=== PATIENT | male | born 1960 | race Hispanic/Latino ===

== ENCOUNTER 2018-06-14 16:51 | Inpatient (IN) | payer OTHER ==
[2018-06-14 19:19] LABS: #Basophils 0.1 thou/uL (0.0-0.2); #Lymphocytes 0.5 thou/uL (1.20-3.40); #Monocytes 0.3 thou/uL (0.11-0.59); #Neutrophils 10.3 thou/uL (1.40-6.50); %Basophils 0.5 % (0.0-1.0); %Eosinophils 0.1 % (0.0-10.0); %Monocytes 2.9 % (0.0-10.0); %Neutrophils 92.5 % (42.0-75.0); Hemoglobin 12.5 g/dL (14.0-18.0); Mean Corpuscular HGB CONC 33.6 g/dL (32.0-36.0); Mean Corpuscular Hemoglobin 31.4 pg (27.0-31.0); Mean Corpuscular Volume 93.2 fL (78.0-98.0); Mean Platelet Volume 7.4 fL (7.4-10.4); Platelet Count 227 thou/uL (130-400); RBC Distribution Width 13.1 % (11.5-14.5); Red Blood Cell (RBC) Count 3.98 mill/uL (4.70-6.10); White Blood Cell (WBC) Count 11.2 thou/uL (4.8-10.8)
[2018-06-14 19:33] LABS: INR-International Normal Ratio 1.1; PTT 32.3 SEC (22.9-36.1); Prothrombin Time 14.5 SEC (12.0-14.7)
[2018-06-14 19:44] LABS: ALT (SGPT) 280 U/L (8-55); AST (SGOT) 108 U/L (5-34); Acetaminophen Less than 6.0 mcg/mL (10.0-30.0); Alcohol Less than 10 mg/dL (Less than 10); Alkaline Phosphatase 177 U/L (40-150); Anion Gap 12 mmol/L (10-20); BUN (Urea Nitrogen) 28 mg/dL (8.4-25.7); Bilirubin, Total 3.3 mg/dL (0.2-1.2); Calc. Creatinine Clearance 0 mL/min (70-130); Calcium 9.3 mg/dL (7.8-10.44); Carbon Dioxide 25 mmol/L (22-29); Chloride 99 mmol/L (98-107); Estimated GFR-MDRD 48; Globulin 3.7 g/dL (2.4-3.5); Glucose 295 mg/dL (70-105); Lipase 14 U/L (8-78); Potassium 4.4 mmol/L (3.5-5.1); Protein, Total 7.7 g/dL (6.0-8.3); Salicylate Less than 8.0 mg/dL (15.0-30.0); Sodium 132 mmol/L (136-145)
[2018-06-14] MEDS ORDERED: Ibuprofen 200 MG TAB ONE (19:57)
--- NOTE | 2018-06-14 20:14 | RAD ---
PORTABLE AP CHEST X-RAY: 06/14/2018 HISTORY: Hepatitis. Diabetes. Fever of 102. FINDINGS: The cardiac silhouette and pulmonary vasculature are within normal limits. The lungs are clear. The re is mild elevation of the right hemidiaphragm. Vascular calcification is seen in the thoracic aort a. The osseous structures appear intact. IMPRESSION: No acute cardiopulmonary process. POS: H
--- NOTE | 2018-06-14 21:00 | ULT ---
RIGHT UPPER QUADRANT ULTRASOUND: 06/14/2018 HISTORY: Right upper quadrant/epigastric pain with nausea and vomiting x3 days. FINDINGS: There is a large, mobile calculus seen within the gallbladder lumen, measuring 3.3 cm in maximal dime nsions, which demonstrates posterior shadowing, consistent with a large gallbladder calculus. There is gallbladder wall thickening, with the gallbladder wall measuring 0.5 cm in thickness. There is al so echogenic material in the gallbladder lumen, suggesting sludge. A few of the images question trac e pericholecystic fluid. Findings may be related to cholecystitis, in the correct clinical scenario. The common duct measures 0.4 cm in diameter, which is within normal limits. The liver demonstrates increased echogenicity, likely related to mild fatty infiltration. The pancreas is obscured by bowel gas. The visualized portions of the IVC and right kidney demonstra te a normal sonographic appearance. The right kidney measures 12.2 cm in length. IMPRESSION: 1. Large gallbladder calculus with sludge in the gallbladder lumen, with gallbladder wall thickening and suggestion of trace pericholecystic fluid. In the correct clinical scenario, findings are likel y related to cholecystitis. 2. The common duct is normal in caliber. 3. Fatty infiltration of the liver. POS: H
[2018-06-14] MEDS ORDERED: cefOXitin 2 GM, Syringe 1 ML in Sterile Water 10 ML SLOW IVP SCH (22:15)
[2018-06-14 23:20] LABS: Lactic Acid 1.7 mmol/L (0.5-2.2)
[2018-06-14] MEDS ORDERED: Acetaminophen 325 MG TAB PO PRN (23:27)
[2018-06-14] MEDS ORDERED: Ondansetron PF 4 MG/2 ML Vial IVP PRN (23:27)
[2018-06-14] MEDS ORDERED: Ondansetron ODT 4 MG TAB SL PRN (23:27)
[2018-06-15 00:42] VITALS: BMI 24.9
[2018-06-15] MEDS: Dextrose 5 % And 0.9 % NaCl 1,000 ML IV SCH ×2 (00:45→08:35)
[2018-06-15 04:14] LABS: #Lymphocytes 0.9 thou/uL (1.20-3.40); #Monocytes 0.5 thou/uL (0.11-0.59); #Neutrophils 7.8 thou/uL (1.40-6.50); %Basophils 0.3 % (0.0-1.0); %Eosinophils 0.1 % (0.0-10.0); %Lymphocytes 9.6 % (21.0-51.0); %Monocytes 5.3 % (0.0-10.0); %Neutrophils 84.9 % (42.0-75.0); Hemoglobin 10.3 g/dL (14.0-18.0); Mean Corpuscular HGB CONC 32.8 g/dL (32.0-36.0); Mean Corpuscular Hemoglobin 30.6 pg (27.0-31.0); Mean Corpuscular Volume 93.3 fL (78.0-98.0); Mean Platelet Volume 7.1 fL (7.4-10.4); Platelet Count 188 thou/uL (130-400); RBC Distribution Width 13.1 % (11.5-14.5); Red Blood Cell (RBC) Count 3.37 mill/uL (4.70-6.10); White Blood Cell (WBC) Count 9.2 thou/uL (4.8-10.8)
[2018-06-15 04:35] LABS: ALT (SGPT) 191 U/L (8-55); AST (SGOT) 57 U/L (5-34); Albumin 3.3 g/dL (3.5-5.0); Alkaline Phosphatase 140 U/L (40-150); Anion Gap 11 mmol/L (10-20); BUN (Urea Nitrogen) 34 mg/dL (8.4-25.7); Bilirubin, Total 2.5 mg/dL (0.2-1.2); Calc. Creatinine Clearance 45 mL/min (70-130); Calcium 8.5 mg/dL (7.8-10.44); Carbon Dioxide 26 mmol/L (22-29); Chloride 104 mmol/L (98-107); Estimated GFR-MDRD 42; Glucose 260 mg/dL (70-105); Potassium 3.6 mmol/L (3.5-5.1); Protein, Total 6.3 g/dL (6.0-8.3); Sodium 137 mmol/L (136-145)
[2018-06-15] MEDS ORDERED: MEROPENEM 1 GM/50 ML 1 GM in Premix Bag 1 BAG IVPB SCH (10:00)
[2018-06-15] MEDS ORDERED: HYDROcodone/Acetaminophen 7.5/325 mg Tablet PO PRN (10:45)
[2018-06-15] MEDS ORDERED: Sodium Chloride 0.9% 500 ML IV SCH (10:45)
[2018-06-15] MEDS ORDERED: Acetaminophen 1,000 MG in Premix Bag 1 BAG IVPB PRN (10:46)
[2018-06-15] MEDS ORDERED: Ondansetron PF 4 MG/2 ML Vial IVP PRN (10:46)
--- NOTE | 2018-06-15 11:20 | HP ---
REASON FOR CONSULTATION: Abdominal pain. HISTORY: Mr. Blevins is a 57-year-old man with epigastric and right upper quadrant abdominal pain since Thursday. He has had intermittent episodes of this in the past, but they have always gone away on t heir own and after he took some antacids. On this episode it was not going away and he was having mu ltiple episodes of nausea and vomiting, so he came into the emergency room last night. He was noted by the ER doctor to be jaundiced and he had also been running high fevers up to 102 Fahrenheit. He h ad a low grade fever in the ER of 99.8. He had taken multiple remedies at home including Pepto-Bismo l and other over the counter medications without any improvement and workup in the ER was most consis tent with cholecystitis. Since starting on antibiotics and pain medication he is feeling better. PAST MEDICAL HISTORY: Hypertension, hyperlipidemia and diabetes. PAST SURGICAL HISTORY: None. FAMILY HISTORY: Renal failure, diabetes, and heart attack in sibling, abdominal cancer of uncertain etiology in his mother and stroke in his father. SOCIAL HISTORY: The patient does not smoke, drink or use illicit drugs. MEDICATIONS: Metformin, lovastatin, amlodipine, losartan and aspirin. He also takes some over-the-c ounter supplements. ALLERGIES: No known drug allergies. INPATIENT MEDICATIONS: He received Mefoxin in the emergency room, but developed a rash, so he is now on meropenem. REVIEW OF SYSTEMS: Ten system review of systems is negative except per HPI. He denies melena or hem atemesis. PHYSICAL EXAMINATION: VITAL SIGNS: The patient is afebrile with normal vital signs. HEENT: Unremarkable except for poor dentition. He is slightly icteric. No lymphadenopathy or thyro id masses. He is not flushed or toxic in appearance. HEART: Regular in its rate and rhythm without murmurs, rubs or gallops. LUNGS: Clear to auscultation bilaterally. ABDOMEN: Soft and nondistended, without palpable masses or hernias. He is tender to palpation in th e right upper quadrant without rigidity, rebound or guarding. EXTREMITIES: Warm and well perfused without edema. NEUROLOGIC: No focal deficits. PSYCHIATRIC: Alert, oriented, and appropriate. LABORATORY DATA: White count was mildly elevated last night, but has come back down. His hematocrit was low when it was checked a few months ago at 27 and had come up to 37 on admission, but with hydr ation has come back down into the low 30s. BUN and creatinine were elevated last night and his creat inine is up even a little bit more today to 1.6, bilirubin was elevated to 3.3 and is down into the 2 s today. AST and ALT has also come down slightly, although they are still elevated. Electrolytes ar e unremarkable. Chest x-ray is unremarkable. Gallbladder ultrasound showed a large stone with a lot of sludge in the gallbladder, wall thickening and pericholecystic fluid. His bile duct was normal c aliber. ASSESSMENT: Acute calculous cholecystitis. Liver function tests are likely elevated due to his chol ecystitis, but choledocholithiasis cannot be ruled out. I have recommended laparoscopic cholecystect sharifa with intraoperative cholangiogram for treatment. Inherent risks of the surgery include, but are not limited to bleeding, infection, risks of anesthesia, damage to nearby structures including bowel, liver and bile duct, need for open surgery, need for other procedures. He understands and accepts t hese risks and wishes to proceed. We will keep him on antibiotics perioperatively. He also has some acute renal insufficiency, which is likely due to dehydration from his illness. I have ordered some extra fluids for him. We will watch his urinary output and renal function. If this is not improved by tomorrow I will get Nephrology involved. We will keep him on his home medications for his diabet es and hypertension once his diet is restarted.
[2018-06-15] MEDS ORDERED: Bupivacaine/Epinephrine 0.25% 30 ML VIAL ONE (12:31)
[2018-06-15] MEDS ORDERED: Iothalamate Meglumine 60% 50 ML VIAL FS ONE (12:31)
[2018-06-15] MEDS ORDERED: Fentanyl 100 MCG/2 ML VIAL ONE (12:32)
[2018-06-15] MEDS ORDERED: Famotidine/PF 20 mg/2ml Vial ONE (12:40)
[2018-06-15] MEDS ORDERED: diphenhydrAMINE 50 MG/ML VIAL ONE (12:40)
[2018-06-15] MEDS ORDERED: methylPREDNISolone Sod Succ/PF 125 MG/2 ML VIAL ONE (12:40)
[2018-06-15] MEDS ORDERED: Lidocaine 1% PF 5 ML VIAL ONE (13:20)
[2018-06-15] MEDS ORDERED: Albumin 5% 0 ML ONE (13:20)
[2018-06-15] MEDS ORDERED: PROPOFOL 200 MG/20 ML VIAL ONE (13:20)
[2018-06-15] MEDS ORDERED: PHENYLEPHRINE-NS 100 MCG/ML 10 ML SYRINGE ONE (13:20)
[2018-06-15] MEDS ORDERED: Ondansetron PF 4 MG/2 ML Vial ONE (13:20)
[2018-06-15] MEDS ORDERED: Albumin 5% 500 ML ONE (13:20)
[2018-06-15] MEDS ORDERED: Dexamethasone 20 MG/5 ML VIAL ONE (13:20)
[2018-06-15] MEDS ORDERED: ePHEDrine/0.9% NaCl/PF SYRINGE 50 mg/10 ml ONE (13:20)
[2018-06-15] MEDS ORDERED: Glycopyrrolate 0.2 MG/ML 5 ML SYRINGE ONE (13:20)
[2018-06-15] MEDS ORDERED: Promethazine HCl 25 MG/ML VIAL IM PRN (15:12)
[2018-06-15] MEDS ORDERED: Ondansetron HCl/PF 4 MG/2 ML Vial IVP PRN (15:12)
[2018-06-15] MEDS ORDERED: Promethazine HCl 25 MG/ML VIAL SLOW IVP PRN (15:12)
[2018-06-15] MEDS: Sodium Chloride 0.9% 1,000 ML IV SCH ×2 (15:43→20:32)
--- NOTE | 2018-06-15 16:21 | RAD ---
INTRAOPERATIVE CHOLANGIOGRAM: 06/15/18 INDICATION: Laparoscopic cholecystectomy with intraoperative cholangiogram. FINDINGS: The two submitted fluoroscopic images from intraoperative cholangiogram demonstrates canalization of the cystic duct with antegrade opacification of the proximal hepatic duct as well as the common bile duct. No visible intraluminal filling defect is evident. There is contrast extension into the duodenu m. Total fluoroscopic time was 8 seconds. Total exposure was 1.28 mGy. IMPRESSION: Intraoperative cholangiogram. No definite intraluminal filling defect is seen within the common duct to suggest choledocholithiasis. There is no evidence of obstruction. POS: C
[2018-06-15] MEDS: Pantoprazole 40 MG VIAL IVP SCH (20:43)
[2018-06-15] MEDS: HYDROcodone/Acetaminophen 7.5/325 mg Tablet PO PRN (23:42)
[2018-06-16] MEDS: Sodium Chloride 0.9% 1,000 ML IV SCH ×4 (03:30→18:49)
[2018-06-16] MEDS: HYDROcodone/Acetaminophen 7.5/325 mg Tablet PO PRN (05:23)
[2018-06-16 06:23] LABS: #Lymphocytes 0.6 thou/uL (1.20-3.40); #Monocytes 0.2 thou/uL (0.11-0.59); %Basophils 0.4 % (0.0-1.0); %Eosinophils 0.2 % (0.0-10.0); %Lymphocytes 9.3 % (21.0-51.0); %Monocytes 2.6 % (0.0-10.0); %Neutrophils 87.5 % (42.0-75.0); Hemoglobin 10.3 g/dL (14.0-18.0); Mean Corpuscular HGB CONC 32.5 g/dL (32.0-36.0); Mean Corpuscular Hemoglobin 30.5 pg (27.0-31.0); Mean Platelet Volume 7.6 fL (7.4-10.4); Platelet Count 179 thou/uL (130-400); RBC Distribution Width 12.9 % (11.5-14.5); Red Blood Cell (RBC) Count 3.37 mill/uL (4.70-6.10); White Blood Cell (WBC) Count 6.9 thou/uL (4.8-10.8)
[2018-06-16 06:49] LABS: Anion Gap 12 mmol/L (10-20); BUN (Urea Nitrogen) 35 mg/dL (8.4-25.7); Calc. Creatinine Clearance 49 mL/min (70-130); Calcium 8.2 mg/dL (7.8-10.44); Carbon Dioxide 21 mmol/L (22-29); Chloride 108 mmol/L (98-107); Estimated GFR-MDRD 47; Glucose 257 mg/dL (70-105); Potassium 4.2 mmol/L (3.5-5.1); Sodium 137 mmol/L (136-145)
[2018-06-16] MEDS ORDERED: Promethazine HCl 25 MG/ML VIAL IM PRN (07:27)
[2018-06-16] MEDS ORDERED: Insulin Regular 300 UNITS/3 ML VIAL SC PRN (07:27)
[2018-06-16] MEDS ORDERED: Ondansetron PF 4 MG/2 ML Vial IVP PRN (07:27)
[2018-06-16] MEDS ORDERED: Dextrose 50% Abboject 50 ML SYRINGE SLOW IVP PRN ×2 (07:27→10:37)
[2018-06-16] MEDS ORDERED: Dextrose 5% in Water 1,000 ML IV PRN ×2 (07:27→10:37)
[2018-06-16 07:56] LABS: ALT (SGPT) 120 U/L (8-55); AST (SGOT) 39 U/L (5-34); Albumin 3.4 g/dL (3.5-5.0); Alkaline Phosphatase 134 U/L (40-150); Bilirubin, Total 1.5 mg/dL (0.2-1.2); Globulin 2.9 g/dL (2.4-3.5); Protein, Total 6.3 g/dL (6.0-8.3)
--- NOTE | 2018-06-16 08:35 | PDOC.GSPN ---
Surgery Progress Note: Subj - Subjective Narrative: Patient feels better this morning. The pain he was having before his operation has improved, although he has some pain at his incision sites. No nausea or vomiting. He hasn't eaten food yet but is getting ready to order breakfast. Afebrile with normal vital signs. White count is normal and hematocrit is stable. Creatinine is down slightly to 1.54 but is still above his baseline. Urine outputs was not quantified although strict in's and out's were ordered, but the patient feels like he is making a normal amount of urine. LFTs are declining. Assessment/plan: Acute cholecystitis, resolving after surgery and antibiotics. Acute renal insufficiency, slightly better than yesterday. I am going to Hep- Lock his fluids if he tolerates his diet. I have reiterated to the patient and the nurse that I want him to quantify his urine output. I have asked the hospitalist service to evaluate him. I have restarted his home medications including metformin, and ordered sliding scale regular insulin. I have ordered repeat labs for the morning. If he continues to improve he should be able to be discharged. I will plan on short-term follow-up in one week with repeat labs. Surgery Progress Note: Obj - Vital signs Vital signs: Vital Signs - Most Recent Temp Pulse Resp BP Pulse Ox 97.7 F 77 18 126/65 95 06/16/18 08:00 06/16/18 08:00 06/16/18 08:00 06/16/18 08:00 06/16/18 08:00 Surgery Progress Note: Results - Labs Result Diagrams: 06/16/18 05:39 06/16/18 05:39 Lab results: Laboratory Results - last 24 hr 06/16/18 06/16/18 05:39 05:39 WBC 6.9 RBC 3.37 L Hgb 10.3 L Hct 31.7 L MCV 94.0 MCH 30.5 MCHC 32.5 RDW 12.9 Plt Count 179 MPV 7.6 Neutrophils % 87.5 H Lymphocytes % 9.3 L Monocytes % 2.6 Eosinophils % 0.2 Basophils % 0.4 Neutrophils # 6.0 Lymphocytes # 0.6 L Monocytes # 0.2 Eosinophils # 0.0 Basophils # 0.0 Sodium 137 Potassium 4.2 Chloride 108 H Carbon Dioxide 21 L Anion Gap 12 BUN 35 H Creatinine 1.54 H Estimated GFR (MDRD) 47 Glucose 257 H Calcium 8.2 Total Bilirubin 1.5 H AST 39 H ALT 120 H Alkaline Phosphatase 134 Serum Total Protein 6.3 Albumin 3.4 L Globulin 2.9 Albumin/Globulin Ratio 1.2
[2018-06-16] MEDS ORDERED: Losartan 25 MG TAB PO SCH (09:00)
[2018-06-16] MEDS ORDERED: Non-Formulary Item 1 EACH (Losartan Potassium [Losartan Potassium] 50 MG) PO SCH (09:00)
[2018-06-16] MEDS ORDERED: metFORMIN 500 MG TAB PO SCH (09:00)
[2018-06-16] MEDS: Amlodipine 10 MG TAB PO SCH (09:14)
[2018-06-16] MEDS: Aspirin 81 mg Enteric Coated Tablet PO SCH (09:14)
[2018-06-16] MEDS: Pantoprazole 40 MG VIAL IVP SCH ×2 (09:15→20:22)
--- NOTE | 2018-06-16 10:58 | PDOC.OP ---
Operative Note - Operative Note Operative Note: PROCEDURE: Laparoscopic cholecystectomy with intraoperative cholangiogram SURGEON: Una Myers M.D. DATE OF PROCEDURE: 06/15/2018 PREOPERATIVE DIAGNOSIS: Cholelithiasis and cholecystitis, possible choledocholithiasis: POSTOPERATIVE DIAGNOSIS: Cholelithiasis and cholecystitis HISTORY: Patient with intermittent epigastric and right upper quadrant pain for many years with a severe episode which started this weekend and has not resolved. He came into the emergency room was found to have findings consistent with acute cholecystitis. His bile duct was not dilated but his liver function tests were elevated. These have gone down somewhat overnight after bowel rest and antibiotics. Recommendation was made to proceed with laparoscopic cholecystectomy with cholangiogram. FINDINGS: Extremely distended white walled gallbladder with purulent-appearing colorless bile aspirated. Extensive omental adhesions. Severe fibrosis at the level of the neck of the gallbladder. Very large gallstone which was crushed and removed. Thickened gallbladder requiring extension of the skin incision to remove. Normal intraoperative cholangiogram. PROCEDURE IN DETAIL: After informed consent was obtained and appropriate preoperative antibiotics were administered, the patient was taken to the operating room and placed in the supine position and general endotracheal anesthesia was administered. The stomach was decompressed with an OG tube and the abdomen was prepped and draped in standard sterile fashion. Local anesthesia was infused to the skin and subcutaneous tissues at the umbilical level. A transverse skin incision was made. The fascia was elevated and a Veress needle was placed into the abdominal cavity without difficulty. Opening pressure was less than 5 and carbon dioxide gas easily insufflated to an intra- abdominal pressure of 15, which the patient tolerated well. The Veress needle was withdrawn and a [place] port advanced under direct vision. The abdominal cavity was carefully examined. There was no evidence of Veress needle or of trocar injury. Local anesthesia was infused to the skin and subcutaneous tissues at the epigastric, right upper quadrant, and right lateral abdominal sites and trocars were placed under direct vision of the laparoscope. The fundus of the gallbladder was too taut to grasp so was aspirated with removal of about 100 mL's of colorless the cloudy-appearing bile. After this the fundus was able to be grasped and retracted superiorly. The patient had extensive chronic-appearing omental adhesions to the entire lower part of the gallbladder and also to the liver edge which were carefully taken down using careful electrocautery as needed. The infundibulum was eventually exposed and grasped and retracted laterally. The serosa was stripped inferiorly at the level of the neck of the gallbladder with some difficulty due to severe fibrosis at this level exposing the cystic duct and artery which were traced clearly to their insertion in the gallbladder. These were dissected free circumferentially and the cystic artery was clipped and divided as it was making exposure of the cystic duct difficult. The cystic duct was clipped at the level of the neck of the gallbladder. An incision was made in the cystic duct inferior to the clip and the cystic duct was palpated with no stones palpable. Sludge and then clear bile was seen to flow from the cystic duct incision. A cholangiogram catheter was introduced and placed into the cystic duct and secured with a clip. The bile duct was somewhat difficult to flush so glucagon was administered and allowed to circulate for a few minutes. After this the duct was much easier to flush. A cholangiogram was obtained which showed an adequate length of cystic duct. There was normal filling of the common bile duct with free flow of contrast into the duodenum. There was normal retrograde flow into the common hepatic duct beyond the level of the bifurcation without filling defects. The cholangiogram catheter was removed and the cystic duct clipped below the incision in the cystic duct. The cystic duct was divided between these clips and the previously placed clip. The gallbladder was then dissected free of the gallbladder bed using hook electrocautery. As dissection was carried out superiorly another small branch of the cystic artery was encountered clipped and divided. Prior to complete removal of the gallbladder from the gallbladder bed, the area of the cystic duct and artery stumps was examined. The clips were in good position completely across these structures and there was no bleeding and no leakage of bile. The gallbladder was then placed into an EndoCatch bag and drawn out through the epigastric incision after crushing and removing a very large stone within the gallbladder. Even after removal of the stone, the gallbladder wall was so thickened that the skin incision had to be extended slightly to remove the specimen. The epigastric trocar was replaced and the operative site easily irrigated to clear. There was no significant bleeding or spillage of bile. The epigastric trocar was removed and the fascia closed under direct laparoscopic vision with a 0 Vicryl suture on a GraNee needle in a [id number] manner with excellent technical result. The right upper quadrant and right lateral abdominal trocars were removed and hemostasis verified. Carbon dioxide gas was allowed to desufflate through the umbilical trocar which was then removed. Due to the patient's thin body habitus the fascia at the umbilical incision was visible and this was closed under direct vision with a 0 Vicryl suture on a UR 6 needle with excellent technical result. The skin incisions were closed with 4-0 subcuticular Monocryl sutures and Dermabond dressings were placed. The patient was extubated and taken to the recovery room in good condition. There were no complications.
[2018-06-16] MEDS ORDERED: Insulin Glargine 3 UNITS in Pre-Filled Syringe 1 EACH SC SCH (11:30)
[2018-06-16] MEDS: HumaLOG 300 UNITS/3 ML VIAL SC PRN ×3 (13:29→21:16)
--- NOTE | 2018-06-16 14:12 | ULT ---
RENAL ULTRASOUND: INDICATIONS: Acute renal injury. COMPARISON: None. FINDINGS: The right kidney measures 10.8 x 6 x 7 cm. The left kidney measures 10.7 x 7 x 6 cm. No focal renal lesion of hydronephrosis is evident. Pre-void bladder volume is 585.3 mL. IMPRESSION: No focal renal lesion or hydronephrosis. POS: [facility]
[2018-06-16] MEDS ORDERED: hydrALAZINE 20 MG/ML VIAL SLOW IVP PRN (15:57)
--- NOTE | 2018-06-16 17:20 | PDOC.PN ---
- Subjective Encounter Start Date: 06/16/18 Encounter Start Time: 10:15 Subjective: pt up in bed no complains - Objective Vital Signs & Weight: Vital Signs (12 hours) Temp Pulse Resp BP BP Pulse Ox 06/16/18 16:00 97.5 F L 63 16 104/60 95 06/16/18 11:54 97.8 F 78 16 155/72 H 93 L 06/16/18 09:14 77 126/65 06/16/18 08:00 97.7 F 77 18 126/65 95 Weight Weight 145 lb 3.2 oz I&O: 06/15/18 06/16/18 06/17/18 06:59 06:59 06:59 Intake Total 625 2280 Balance 625 2280 Result Diagrams: 06/16/18 05:39 06/16/18 05:39 Additional Labs: Accuchecks 06/16/18 06/16/18 15:36 11:00 POC Glucose 271 H 292 H Phys Exam - Physical Examination Neck: no nodes, no JVD, supple, full ROM Respiratory: no wheezing, no rales, no rhonchi, wheezing present, clear to auscultation bilateral Cardiovascular: RRR, no significant murmur, no rub, gallop, irregular Gastrointestinal: soft, non-tender, no distention, positive bowel sounds Dx/Plan (1) YIFAN (acute kidney injury) Code(s): N17.9 - ACUTE KIDNEY FAILURE, UNSPECIFIED Status: Acute (2) Diabetes Code(s): E11.9 - TYPE 2 DIABETES MELLITUS WITHOUT COMPLICATIONS Status: Acute (3) HTN (hypertension) Code(s): I10 - ESSENTIAL (PRIMARY) HYPERTENSION Status: Acute - Plan check bmp in am -: renal ultrasound ordered -: hold losartan and metformin * . spoke with pt and who stated that for sometime he was not taking his DM and bp meds. Called Dr glaser's office nurse stated last creatinine was 0.99. Pt denies taking any NSAIDS. will hold losartan and metformin. Possible prerenal will continue iv hydration and see if his creatinine improves. This could also be intrinsic given his hx of htn and DM. will get a renal ultrasound. Pt's concern that pt's sister of medication overdose ( metformin and januvia). Reassured her that pt is on low dose metformin. Pt did receive one dose of motrin which now has been discontinued. will hold nephrotoxins for now. Review of Systems - Review of Systems Respiratory: negative: Cough, Dry, Shortness of Breath, Hemoptysis, SOB with Excertion, Pleuritic Pain, Sputum, Wheezing Cardiovascular: negative: chest pain, palpitations, orthopnea, paroxysmal nocturnal dyspnea, edema, light headedness, other Gastrointestinal: negative: Nausea, Vomiting, Abdominal Pain, Diarrhea, Constipation, Melena, Hematochezia, Other Genitourinary: negative: Dysuria, Frequency, Incontinence, Hematuria, Retention , Other - Medications/Allergies Allergies/Adverse Reactions: Allergies Allergy/AdvReac Type Severity Reaction Status Date / Time No Known Allergies Allergy Verified 06/15/18 00:57 Medications: Current Medications Hydrocodone Bitart/Acetaminophen ([place] 7.5/325) 1 tab PO Q4H PRN PRN Reason: Mild Pain (1-3) Hydrocodone Bitart/Acetaminophen ([place] 7.5/325) 2 tab PO Q4H PRN PRN Reason: Moderate Pain (4-6) Last Admin: 06/16/18 05:23 Dose: 2 tab Amlodipine Besylate (Norvasc) 10 mg PO DAILY [facility] Last Admin: 06/16/18 09:14 Dose: 10 mg Aspirin (Ecotrin) 81 mg PO DAILY [facility] Last Admin: 06/16/18 09:14 Dose: 81 mg Dextrose/Water (Dextrose 50%) 25 gm SLOW IVP PRN PRN PRN Reason: Hypoglycemia Glucagon (Glucagon) 1 mg IM PRN PRN PRN Reason: Hypoglycemia Hydralazine HCl (Apresoline) 5 mg SLOW IVP Q4H PRN PRN Reason: Blood Pressure Sodium Chloride (Normal Saline 0.9%) 1,000 mls @ 150 mls/hr IV .Q6H40M [facility] Last Admin: 06/16/18 09:16 Dose: 1,000 mls Levofloxacin 500 mg/ Device 100 mls @ 100 mls/hr IVPB 1800 [facility] Last Admin: 06/15/18 17:54 Dose: 100 mls Dextrose/Water (D5w) 1,000 mls @ 0 mls/hr IV .Q0M PRN PRN Reason: Hypoglycemia Insulin Glargine 3 units/ (Miscellaneous Medication) 0.03 mls @ 0 mls/hr SC QAM [facility] Insulin Human Lispro (Humalog) 0 units SC .MILD SLIDING SCALE PRN PRN Reason: Mild Correctional Scale Last Admin: 06/16/18 13:29 Dose: 4 unit Insulin Human Regular (Humulin R) 0 units SC .MILD SLIDING SCALE PRN PRN Reason: Mild Correctional Scale Losartan Potassium (Cozaar) 50 mg PO DAILY [facility] Last Admin: 06/16/18 09:14 Dose: 50 mg Metformin HCl (Glucophage) 500 mg PO BID [facility] Last Admin: 06/16/18 09:15 Dose: 500 mg Morphine Sulfate (Morphine) 2 mg SLOW IVP Q1H PRN PRN Reason: Breakthrough Pain Last Admin: 06/15/18 20:51 Dose: 2 mg Ondansetron HCl (Zofran) 4 mg IVP Q6H PRN PRN Reason: Nausea/Vomiting Pantoprazole Sodium (Protonix) 40 mg IVP Q12HR [facility] Last Admin: 06/16/18 09:15 Dose: 40 mg Promethazine HCl (Phenergan) 12.5 mg IM Q4H PRN PRN Reason: Nausea/Vomiting Simvastatin (Zocor) 10 mg PO HS [facility] Sodium Chloride (Flush - Normal Saline) 10 ml IVF Q12HR [facility] Last Admin: 06/16/18 09:15 Dose: 10 ml Sodium Chloride (Flush - Normal Saline) 10 ml IVF PRN PRN PRN Reason: Saline Flush
[2018-06-16] MEDS ORDERED: Simvastatin 5 MG TAB PO SCH (21:00)
[2018-06-16] MEDS ORDERED: Non-Formulary Item 1 EACH (Lovastatin 20 MG) PO SCH (21:00)
[2018-06-17] MEDS: Sodium Chloride 0.9% 1,000 ML IV SCH ×2 (03:23→08:28)
[2018-06-17 06:21] LABS: ALT (SGPT) 79 U/L (8-55); AST (SGOT) 25 U/L (5-34); Albumin 2.9 g/dL (3.5-5.0); Alkaline Phosphatase 115 U/L (40-150); Anion Gap 8 mmol/L (10-20); BUN (Urea Nitrogen) 34 mg/dL (8.4-25.7); Bilirubin, Total 0.9 mg/dL (0.2-1.2); Calc. Creatinine Clearance 61 mL/min (70-130); Carbon Dioxide 24 mmol/L (22-29); Chloride 112 mmol/L (98-107); Estimated GFR-MDRD 60; Globulin 2.6 g/dL (2.4-3.5); Glucose 134 mg/dL (70-105); Potassium 3.8 mmol/L (3.5-5.1); Protein, Total 5.5 g/dL (6.0-8.3); Sodium 140 mmol/L (136-145)
[2018-06-17] MEDS: Pantoprazole 40 MG VIAL IVP SCH (08:29)
[2018-06-17] MEDS: Aspirin 81 mg Enteric Coated Tablet PO SCH (08:29)
[2018-06-17] MEDS: Amlodipine 10 MG TAB PO SCH (08:29)
[2018-06-17] MEDS ORDERED: Insulin Glargine 3 UNITS in Pre-Filled Syringe 1 EACH SC SCH (09:00)
[2018-06-17] MEDS: HYDROcodone/Acetaminophen 7.5/325 mg Tablet PO PRN (09:14)
[2018-06-17] MEDS: HumaLOG 300 UNITS/3 ML VIAL SC PRN (12:13)
[2018-06-17] MEDS ORDERED: Acetaminophen 500 MG TAB PO PRN (12:50)
[2018-06-17] MEDS ORDERED: traMADol HCl 50 MG TAB PO PRN ×2 (12:50)
[2018-06-17] MEDS ORDERED: Ibuprofen 600 MG TAB PO PRN (12:50)
--- NOTE | 2018-06-17 13:10 | PRG ---
DATE OF SERVICE: 06/17/2018 SUBJECTIVE: Orestes Blevins is doing well today. He is tolerating his diabetic diet. PHYSICAL EXAMINATION: VITAL SIGNS: Temperature 97.8 degrees, 74, 156/72. LUNGS: Clear to auscultation. CARDIAC: Regular rate and rhythm without murmur or gallop. ABDOMEN: Soft, nondistended, nontender. Surgical laparoscopic wounds are well healed, no wound prob lems. EXTREMITIES: Unremarkable. LABORATORY DATA: Yesterday's white count was 6, hemoglobin 10.3 today. His liver function tests are normal. AST 79, ALT 25, bilirubin 0.9. Electrolytes unremarkable. BUN and creatinine are normal, 34 and 1.23. GFR 60. ASSESSMENT AND PLAN: The patient is doing well. We will plan to discharge home today on Tylenol and ibuprofen as needed, Ultram for breakthrough pain. Resume his home medications. Follow up with Dr. Myers in 1-2 weeks.
--- NOTE | 2018-06-17 13:12 | DIS ---
DISCHARGE DIAGNOSES: 1. Acute cholecystitis. 2. Cholelithiasis. 3. Diabetes mellitus. 4. Hypertension. 5. Elevated liver function tests, secondary to acute cholecystitis. Bilirubin up to 3.3, normalized to 0.9 prior to discharge. DISCHARGE MEDICATIONS: [id number] Tylenol, ibuprofen for pain, Ultram #25 three refills given, MiraLax given [id number] as needed for stool softeners. Resume home medications; losartan 50 mg a day, amlodipine 10 mg a day, metformin 500 b.i.d., Mevacor 20 mg at bedtime. Follow up with Dr. Myers 1-2 weeks. HISTORY: A 57-year-old male patient presenting with acute cholecystitis, undergoing abdominal ultras ound revealing gallstones, bile duct 4 mm. The patient underwent laparoscopic video cholecystectomy, cholangiograms 06/15/2018. Cholangiograms were normal. Findings were consistent with acute cholecy stitis causing his elevated LFTs. LFTs normalized postoperatively. He is continuing intravenous ant ibiotics. Hospitalist Service saw him for monitoring his diabetes and hypertension. The patient is discharged home on his home medications and pain regimen ibuprofen, Tylenol and Ultram as needed for pain. Follow up with Dr. Myers in a week or two. Diet and activity as tolerated. Diabetic diet.
--- NOTE | 2018-06-17 13:40 | PDOC.PN ---
- Subjective Encounter Start Date: 06/17/18 Encounter Start Time: 09:30 Patient seen and examined for med mngt. No new complaints. No overnight events - Objective MAR Reviewed: Yes Vital Signs & Weight: Vital Signs (12 hours) Temp Pulse Resp BP BP Pulse Ox 06/17/18 08:29 74 156/72 H 06/17/18 08:00 97.8 F 74 16 156/72 H 95 06/17/18 05:23 97.9 F 70 18 118/71 95 Weight Weight 145 lb 3.2 oz I&O: 06/16/18 06/17/18 06/18/18 06:59 06:59 06:59 Intake Total 2280 3580 Output Total 2100 Balance 2280 1480 Result Diagrams: 06/16/18 05:39 06/17/18 05:04 Additional Labs: Accuchecks 06/17/18 06/17/18 06/16/18 10:29 05:49 21:02 POC Glucose 224 H 124 H 208 H 06/16/18 15:36 POC Glucose 271 H Phys Exam - Physical Examination Constitutional: NAD Respiratory: no wheezing, no rhonchi Cardiovascular: RRR, no rub Gastrointestinal: soft, positive bowel sounds Musculoskeletal: no edema Dx/Plan - Plan DVT proph w/SCDs 1. YIFAN on CKD 2 - improving Cont to hold Losartan/Metformin - Can prob start after 2 days BMP after 1 week 2. DM2 Cont sliding scale 3. HTN Cont Amlodipine 4. Chronic Anemia Review of Systems - Review of Systems Respiratory: negative: Cough, Dry, Shortness of Breath, Hemoptysis, SOB with Excertion, Pleuritic Pain, Sputum, Wheezing Cardiovascular: negative: chest pain, palpitations, orthopnea, paroxysmal nocturnal dyspnea, edema, light headedness, other - Medications/Allergies Allergies/Adverse Reactions: Allergies Allergy/AdvReac Type Severity Reaction Status Date / Time No Known Allergies Allergy Verified 06/15/18 00:57 Medications: Current Medications Acetaminophen (Tylenol) 1,000 mg PO Q6H PRN PRN Reason: Moderate to Severe Pain (6-10) Amlodipine Besylate (Norvasc) 10 mg PO DAILY [facility] Last Admin: 06/17/18 08:29 Dose: 10 mg Aspirin (Ecotrin) 81 mg PO DAILY [facility] Last Admin: 06/17/18 08:29 Dose: 81 mg Dextrose/Water (Dextrose 50%) 25 gm SLOW IVP PRN PRN PRN Reason: Hypoglycemia Glucagon (Glucagon) 1 mg IM PRN PRN PRN Reason: Hypoglycemia Hydralazine HCl (Apresoline) 5 mg SLOW IVP Q4H PRN PRN Reason: Blood Pressure Dextrose/Water (D5w) 1,000 mls @ 0 mls/hr IV .Q0M PRN PRN Reason: Hypoglycemia Insulin Glargine 3 units/ (Miscellaneous Medication) 0.03 mls @ 0 mls/hr SC QAM [facility] Last Admin: 06/17/18 09:15 Dose: 0.03 mls Ibuprofen (Motrin) 600 mg PO Q6H PRN PRN Reason: Pain Insulin Human Lispro (Humalog) 0 units SC .MILD SLIDING SCALE PRN PRN Reason: Mild Correctional Scale Last Admin: 06/17/18 12:13 Dose: 3 unit Insulin Human Regular (Humulin R) 0 units SC .MILD SLIDING SCALE PRN PRN Reason: Mild Correctional Scale Losartan Potassium (Cozaar) 50 mg PO DAILY [facility] Last Admin: 06/16/18 09:14 Dose: 50 mg Metformin HCl (Glucophage) 500 mg PO BID [facility] Last Admin: 06/16/18 09:15 Dose: 500 mg Polyethylene Glycol (Miralax) 17 gm PO DAILY [facility] Simvastatin (Zocor) 10 mg PO HS [facility] Last Admin: 06/16/18 20:22 Dose: 10 mg Sodium Chloride (Flush - Normal Saline) 10 ml IVF Q12HR [facility] Last Admin: 06/17/18 08:30 Dose: 10 ml Sodium Chloride (Flush - Normal Saline) 10 ml IVF PRN PRN PRN Reason: Saline Flush Tramadol HCl (Ultram) 50 mg PO Q6H PRN PRN Reason: Pain 1-5
[2018-06-17 15:02] VITALS: BP 147/74; TEMP 97.6
[2018-06-18] MEDS ORDERED: Polyethylene Glycol 3350 17 GM Packet PO SCH (09:00)
== END 2018-06-17 16:02 | disposition home or self-care (01) | DRG 418 ==
LOC: ERS 16:51 → SJJU 23:12
PROVIDERS: ADMIT Surgery; ATTEND Surgery
PROC: 0FT44ZZ Resection of Gallbladder, Percutaneous Endoscopic Approach (ICD-10-PCS; principal; 2018-06-15)
PROC: BF101ZZ Fluoroscopy of Bile Ducts using Low Osmolar Contrast (ICD-10-PCS; 2018-06-15)
DX: K80.00 Calculus of gallbladder with acute cholecystitis without obstruction (principal); N17.9 Acute kidney failure, unspecified; E78.5 Hyperlipidemia, unspecified; Z79.84 Long term (current) use of oral hypoglycemic drugs; Z79.82 Long term (current) use of aspirin; E86.0 Dehydration; E11.22 Type 2 diabetes mellitus with diabetic chronic kidney disease; I12.9 Hypertensive chronic kidney disease with stage 1 through stage 4 chronic kidney disease, or unspecified chronic kidney disease; N18.2 Chronic kidney disease, stage 2 (mild); D63.1 Anemia in chronic kidney disease
CPT/HCPCS: 36415; 36416; 47532; 71045; 76705; 76770; 80053; 80307; 83605; 83690; 85025; 85610; 85730; 87040; 87070; 87077; 87186; 87205; 88304; 90471; 90686; 93005; 93010; 96361; 96374; A4216; C9113; G0008; J0131; J0694; J1100; J1200; J1610; J1956; J2001; J2185; J2270; J2405; J2704; J2930; J3010; P9045; Q9961; S0028

== ENCOUNTER 2020-09-11 17:17 | Inpatient (IN) | payer OTHER ==
[2020-09-11 20:21] VITALS: BMI 25.6
[2020-09-11] MEDS ORDERED: Dextrose 50% Abboject 50 ML SYRINGE SLOW IVP PRN (20:59)
[2020-09-11] MEDS ORDERED: Dextrose 5% in Water 1,000 ML IV PRN (20:59)
[2020-09-11] MEDS ORDERED: Ondansetron ODT 4 MG TAB PO PRN (21:02)
[2020-09-11] MEDS ORDERED: Guaifenesin DM 100-10/5 ML UDCUP PO PRN (21:02)
[2020-09-11] MEDS ORDERED: Acetaminophen 325 MG TAB PO PRN (21:02)
[2020-09-11] MEDS ORDERED: Calcium Carbonate 500 MG ChewTAB PO PRN (21:02)
[2020-09-11] MEDS ORDERED: Benzonatate 100 MG CAP PO PRN (21:06)
--- NOTE | 2020-09-11 21:23 | PDOC.HHP ---
Hospitalist HPI - History of Present Illness Shortness of breath and weakness History of Present Illness: PCP: Dr. Persaud The patient is a 59-year-old male with a past medical history significant for hypertension, hyperlipidemia and diabetes 2 that presents to the hospital as a transfer via EMS from [place] emergency department for Covid pneumonia, hypoxia and YIFAN. The patient reports being originally diagnosed with Covid 19 virus on 09/05/2020. He reports that his symptoms started 1 to 2 days afterwards, which included mild shortness of breath and generalized weakness. Patient was given prescriptions for Tessalon Perles, steroids and antibiotics, however, he only filled the cough medicine prescription. Since his original diagnosis, his shortness of breath and generalized weakness has just become increasingly worse. He denies any fever or chills. He denies abdominal pain, nausea, vomiting, diarrhea. He denies loss of taste or smell. He denies any chest pain, heart palpitations or lightheadedness. He reports intermittent nonproductive cough. He denies any wheezing, history of COPD/asthma or DVT/PE. ED Course: Lulu: Presented T 98.8, BP 85/49, HR 60, RR 20, SPO2 82% room air (96% 2 LNC) Initial troponin 0.018, BUN 33, creatinine 1.79 Glucose 119 LA 1.8, WBC 7.7 Medications: Cefepime 2 g Dexamethasone 1 L normal saline Lovenox Hospitalist ROS - Review of Systems All other systems reviewed; all pertinent +/- noted in HPI/Subj - Medication Medications: 1. Metformin extended release 750 mg p.o. daily 2. Lovastatin 20 mg p.o. daily. Allergies: No known drug allergies Hospitalist History - Past Medical History Source: patient, RN notes reviewed Cardiac: reports: HTN, Hyperlipidemia Endocrine: reports: Diabetes (Type II [id number]) - Past Surgical History Past Surgical History: reports: Cholecystectomy - Family History Other Family History: Noncontributory to this case. - Social History Smoking Status: Never smoker Alcohol: reports: None Drugs: reports: none Living Situation: With Family Occupation: Works in maintenance Activity level: independent ambulation - Exam General Appearance: NAD, awake alert. negative: ill appearing Eye: anicteric sclera ENT: normocephalic atraumatic, dry oral mucosa Neck: supple, no lymphadenopathy Heart: RRR, no murmur, no gallops, no rubs, normal peripheral pulses Respiratory: no rales, no ronchi, no tachypnea, wheezes (Mild expiratory) Gastrointestinal: soft, non-tender, non-distended, normal bowel sounds, no guarding, no rigidity Extremities: no cyanosis, no edema Skin: no rashes Neurological: cranial nerve grossly intact, no focal deficits Musculoskeletal: normal tone, normal strength Psychiatric: normal affect, A&O x 3 Hospitalist Results - Radiology Interpretation Chest x-ray Status: report reviewed by me Additional Comment: Bilateral patchy infiltrates. Hospitalist H&P A/P - Problem (1) Pneumonia due to COVID-19 virus Code(s): U07.1 - COVID-19; J12.82 - PNEUMONIA DUE TO CORONAVIRUS DISEASE 2018 Status: Acute (2) Acute respiratory failure with hypoxia Code(s): J96.01 - ACUTE RESPIRATORY FAILURE WITH HYPOXIA Status: Acute (3) Acute kidney injury superimposed on CKD Code(s): N17.9 - ACUTE KIDNEY FAILURE, UNSPECIFIED; N18.9 - CHRONIC KIDNEY DISEASE, UNSPECIFIED Status: Acute (4) DM2 (diabetes mellitus, type 2) Status: Chronic Qualifiers: Diabetes mellitus prison insulin use: without prison use (5) HTN (hypertension) Code(s): I10 - ESSENTIAL (PRIMARY) HYPERTENSION Status: Chronic (6) HLD (hyperlipidemia) Code(s): E78.5 - HYPERLIPIDEMIA, UNSPECIFIED Status: Chronic - Plan Plan: Patient with DM2, HTN, Covid positive presents for worsening SLB and generalized weakness. CXR bilateral patchy infiltrates. #Pneumonia due to COVID-19 virus Diagnosis 09/05/2020 Symptomatic 09/07/2020 Presented hypotensive and hypoxic. Blood CX pending Start Rocephin and azithromycin. Continue dexamethasone and Lovenox. Add PPI. Start remdesivir. Start vitamin C, vitamin D and zinc. Isolation precautions. Trend acute phase reactants. Supplemental oxygen. #Acute respiratory failure with hypoxia Likely to problem #1. #YIFAN superimposed on CKD Presented creatinine 1.79, GFR 39 Was 1.38, 53 respectively (2019) Likely prerenal, BUN elevated at 33. Received 1 L normal saline in ED. Avoid nephrotoxic medications. Recheck level in a.m. #DM2 Takes metformin. Hold metformin. Start moderate ISS. Accu-Cheks ACH S. #HTN Presented hypotensive Received 1 L normal saline in ED. Currently normotensive. Takes no home medications for this. Continue to monitor BP #HLD Continue home dose lovastatin. Lovenox for DVT prophylaxis. PPI for GI prophylaxis. CODE STATUS is full code. Discussed the case attending physician, Dr. Pritchett, who agrees with plan of care.
[2020-09-11] MEDS: Azithromycin 500 MG in Sodium Chloride 0.9% 250 ML 250 ML IVPB SCH (22:19)
[2020-09-12 05:38] LABS: Bacteria/HPF None Seen HPF (None Seen); Bilirubin Negative (Negative); Blood, Urine Negative (Negative); Clarity Clear (Clear); Glucose, Urine (Dipstick) 150 mg/dL (Negative); Ketone, Urine 20 mg/dL (Negative); Leukocyte Negative Leu/uL (Negative); Nitrite Negative (Negative); Protein, Urine (Dipstick) 50 mg/dL (Neg-Trace); RBC/HPF None Seen HPF (0-3); Specific Gravity, Urine 1.019 (1.002-1.036); Squamous Epithelial 0-3 HPF (0-3); Urobilinogen Normal mg/dL (Less than 2); WBC/HPF 0-3 HPF (0-3)
[2020-09-12 06:45] LABS: #Lymphocytes 0.4 thou/uL (1.20-3.40); #Monocytes 0.2 thou/uL (0.11-0.59); #Neutrophils 2.2 thou/uL (1.40-6.50); %Eosinophils 0.2 % (0.0-10.0); %Lymphocytes 14.7 % (21.0-51.0); %Monocytes 7.5 % (0.0-10.0); %Neutrophils 77.7 % (42.0-75.0); Hemoglobin 10.3 g/dL (14.0-18.0); Mean Corpuscular HGB CONC 33.6 g/dL (32.0-36.0); Mean Corpuscular Volume 95.2 fL (78.0-98.0); Mean Platelet Volume 7.5 fL (7.4-10.4); Platelet Count 291 thou/uL (130-400); RBC Distribution Width 11.4 % (11.5-14.5); White Blood Cell (WBC) Count 2.9 thou/uL (4.8-10.8)
[2020-09-12 07:01] LABS: Anion Gap 19 mmol/L (10-20); BUN (Urea Nitrogen) 41 mg/dL (8.4-25.7); Calc. Creatinine Clearance 54 mL/min (70-130); Calcium 8.3 mg/dL (7.8-10.44); Carbon Dioxide 17 mmol/L (22-29); Chloride 104 mmol/L (98-107); Glucose 252 mg/dL (70-105); Potassium 4.6 mmol/L (3.5-5.1); Sodium 135 mmol/L (136-145)
[2020-09-12] MEDS: Ascorbic Acid 500 mg Chewable Tablet PO SCH (07:55)
[2020-09-12] MEDS: Cholecalciferol 1,000 UNITS (25 MCG) TAB PO SCH (07:55)
[2020-09-12] MEDS: Dexamethasone 4 mg/ml Vial SLOW IVP SCH (07:56)
[2020-09-12] MEDS: Zinc Sulfate 220 MG CAP PO SCH (07:56)
[2020-09-12] MEDS: Enoxaparin Sodium 40 MG/0.4 ML SYRINGE SC SCH (07:56)
[2020-09-12] MEDS: HumaLOG 300 UNITS/3 ML VIAL SC PRN ×4 (07:57→20:31)
[2020-09-12] MEDS ORDERED: REMDESIVIR (EUA) 200 MG in Sodium Chloride 0.9% 250 ML 210 ML IV SCH (09:00)
[2020-09-12] MEDS: cefTRIAXone\\ROCEPHIN 1 GM in Sodium Chloride 0.9% 100 ML IVPB SCH (15:12)
--- NOTE | 2020-09-12 15:23 | PDOC.HOSPP ---
- Subjective Encounter Date: 09/12/20 Encounter Time: 11:20 Subjective: Up in bed no complaints - Objective Vital Signs & Weight: Vital Signs (12 hours) Temp Pulse Resp BP Pulse Ox 09/12/20 12:38 97.6 F 72 20 97 09/12/20 11:00 97.3 F L 75 20 172/79 H 98 09/12/20 07:55 97.9 F 76 20 167/75 H 92 L 09/12/20 05:06 97.6 F 82 18 129/77 95 Weight Admit Weight 149 lb 8 oz Weight 149 lb 8 oz Result Diagrams: 09/12/20 05:51 09/12/20 05:51 Additional Labs: Accuchecks 09/12/20 09/12/20 09/12/20 11:53 07:54 04:36 POC Glucose 223 H 260 H 222 H 09/11/20 21:20 POC Glucose 167 H Hospitalist ROS - Review of Systems Cardiovascular: denies: chest pain, palpitations, orthopnea, paroxysmal noc. dyspnea, edema, light headedness, other Gastrointestinal: denies: nausea, vomiting, abdominal pain, diarrhea, constipation, melena, hematochezia, other Genitourinary: denies: dysuria, frequency, incontinence, hematuria, retention, other - Medication Medications: Active Medications Generic Name Dose Route Start Last Admin Trade Name Abdelrahman PRN Reason Stop Dose Admin Ascorbic Acid 1,000 mg 09/12/20 09:00 09/12/20 07:55 Ascorbic Acid 500 Mg Chewable Tablet PO 1,000 mg DAILY [facility] Administration Cholecalciferol 5,000 units 09/12/20 09:00 09/12/20 07:55 Cholecalciferol 1,000 Units (25 Mcg) Tab PO 5,000 units DAILY [facility] Administration Dexamethasone 6 mg 09/12/20 09:00 09/12/20 07:56 Dexamethasone 4 Mg/Ml Vial SLOW IVP 6 mg DAILY [facility] Administration Enoxaparin Sodium 40 mg 09/12/20 09:00 09/12/20 07:56 Enoxaparin Sodium 40 Mg/0.4 Ml Syringe SC 40 mg 0900 [facility] Administration Azithromycin 500 mg/ Sodium 250 mls @ 250 mls/hr 09/11/20 22:00 09/11/20 22:19 Chloride IVPB 250 mls 2200 [facility] Administration Ceftriaxone Sodium 1 gm/ 100 mls @ 200 mls/hr 09/12/20 16:00 09/12/20 15:12 Sodium Chloride IVPB 100 mls 1600 [facility] Administration Insulin Human Lispro 0 units 09/11/20 20:59 09/12/20 12:13 Humalog 300 Units/3 Ml Vial SC 4 unit .MODERATE SLIDING SC PRN Administration Moderate Correctional Scale Pantoprazole Sodium 40 mg 09/12/20 09:00 09/12/20 07:55 Pantoprazole 40 Mg Tab PO 40 mg DAILY [facility] Administration Zinc Sulfate 220 mg 09/12/20 09:00 09/12/20 07:56 Zinc Sulfate 220 Mg Cap PO 220 mg DAILY [facility] Administration - Exam Neck: negative: supple, symmetric, no JVD, no thyromegaly, no lymphadenopathy, no carotid bruit, JVD Heart: negative: RRR, no murmur, no gallops, no rubs, normal peripheral pulses, irregular, diminshed peripheral pulses, murmur present, II/IV, III/IV Respiratory: negative: CTAB, no wheezes, no rales, no ronchi, normal chest expansion, no tachypnea, normal percussion, rales, rhonchi, tachypneic, wheezes Gastrointestinal: negative: soft, non-tender, non-distended, normal bowel soun ds, no palpable masses, no hepatomegaly, no splenomegaly, no bruit, no guarding, no rigidity, tender to palpation, distended, diminished bowl sounds, voluntary guarding Hosp A/P (1) Acute respiratory failure with hypoxia Code(s): J96.01 - ACUTE RESPIRATORY FAILURE WITH HYPOXIA Status: Acute (2) Pneumonia due to COVID-19 virus Code(s): U07.1 - COVID-19; J12.82 - PNEUMONIA DUE TO CORONAVIRUS DISEASE 2019 Status: Acute (3) DM2 (diabetes mellitus, type 2) Status: Chronic Qualifiers: Diabetes mellitus senior care insulin use: without predatory animal exterminator use (4) HLD (hyperlipidemia) Code(s): E78.5 - HYPERLIPIDEMIA, UNSPECIFIED Status: Chronic (5) HTN (hypertension) Code(s): I10 - ESSENTIAL (PRIMARY) HYPERTENSION Status: Chronic (6) YIFAN (acute kidney injury) Code(s): N17.9 - ACUTE KIDNEY FAILURE, UNSPECIFIED Status: Acute - Plan Patient was diagnosed with COVID-19 dx on 09/05 and symptoms started on September 07. Patient started on remdesivir last dose September 16. Patient also on steroids. To trend inflammatory markers. Will give 8 units of Lantus.
[2020-09-12] MEDS ORDERED: Benzonatate 100 MG CAP PO PRN (16:56)
[2020-09-12] MEDS ORDERED: Insulin Glargine 8 UNITS in Pre-Filled Syringe 1 EACH SC SCH (17:00)
[2020-09-12] MEDS: Simvastatin 10 MG TAB PO SCH (20:29)
[2020-09-12] MEDS: Azithromycin 500 MG in Sodium Chloride 0.9% 250 ML 250 ML IVPB SCH (22:16)
[2020-09-13] MEDS: Aspirin 81 mg Enteric Coated Tablet PO SCH (09:10)
[2020-09-13] MEDS: Zinc Sulfate 220 MG CAP PO SCH (09:10)
[2020-09-13] MEDS: Cholecalciferol 1,000 UNITS (25 MCG) TAB PO SCH (09:10)
[2020-09-13] MEDS: Cyanocobalamin (Vitamin B-12) 1,000 MCG TAB PO SCH (09:11)
[2020-09-13] MEDS: Ascorbic Acid 500 mg Chewable Tablet PO SCH (09:11)
[2020-09-13] MEDS: metFORMIN 500 MG TAB PO SCH (09:13)
[2020-09-13] MEDS: REMDESIVIR (EUA) 100 MG in Sodium Chloride 0.9% 250 ML 230 ML IV SCH (09:15)
[2020-09-13] MEDS: Dexamethasone 4 mg/ml Vial SLOW IVP SCH (09:16)
[2020-09-13] MEDS: Enoxaparin Sodium 40 MG/0.4 ML SYRINGE SC SCH (09:16)
[2020-09-13] MEDS: HumaLOG 300 UNITS/3 ML VIAL SC PRN ×3 (13:07→20:42)
--- NOTE | 2020-09-13 14:57 | PDOC.HOSPP ---
- Subjective Encounter Date: 09/13/20 Encounter Time: 10:00 Subjective: F/u: COVID The patient states she is feeling better. He is sitting up in the chair and ambulated by himself to the chair. He still has a cough but it has improved. No GI symptoms - Objective Vital Signs & Weight: Vital Signs (12 hours) Temp Pulse Resp BP Pulse Ox 09/13/20 11:00 97.8 F 77 18 157/78 H 95 09/13/20 07:31 97.8 F 72 18 102/65 93 L 09/13/20 04:54 97.9 F 78 18 126/71 92 L Weight Admit Weight 149 lb 8 oz Weight 149 lb 8 oz Result Diagrams: 09/12/20 05:51 09/12/20 05:51 Additional Labs: Accuchecks 09/13/20 09/12/20 09/12/20 11:38 19:33 16:33 POC Glucose 289 H 358 H 318 H Hospitalist ROS - Review of Systems Constitutional: denies: fever, chills - Medication Medications: Active Medications Generic Name Dose Route Start Last Admin Trade Name Abdelrahman PRN Reason Stop Dose Admin Ascorbic Acid 1,000 mg 09/12/20 09:00 09/13/20 09:11 Ascorbic Acid 500 Mg Chewable Tablet PO 1,000 mg DAILY [facility] Administration Aspirin 81 mg 09/13/20 09:00 09/13/20 09:10 Aspirin 81 Mg Enteric Coated Tablet PO 81 mg DAILY [facility] Administration Cholecalciferol 5,000 units 09/12/20 09:00 09/13/20 09:10 Cholecalciferol 1,000 Units (25 Mcg) Tab PO 5,000 units DAILY [facility] Administration Cyanocobalamin 500 mcg 09/13/20 09:00 09/13/20 09:11 Cyanocobalamin (Vitamin B-12) 1,000 Mcg Tab PO 500 mcg DAILY [facility] Administration Dexamethasone 6 mg 09/12/20 09:00 09/13/20 09:16 Dexamethasone 4 Mg/Ml Vial SLOW IVP 6 mg DAILY [facility] Administration Enoxaparin Sodium 40 mg 09/12/20 09:00 09/13/20 09:16 Enoxaparin Sodium 40 Mg/0.4 Ml Syringe SC 40 mg 0900 [facility] Administration Azithromycin 500 mg/ Sodium 250 mls @ 250 mls/hr 09/11/20 22:00 09/12/20 22:16 Chloride IVPB 250 mls 2200 [facility] Administration Ceftriaxone Sodium 1 gm/ 100 mls @ 200 mls/hr 09/12/20 16:00 09/12/20 15:12 Sodium Chloride IVPB 100 mls 1600 [facility] Administration Remdesivir 100 mg/ Sodium 250 mls @ 250 mls/hr 09/13/20 09:00 09/13/20 09:15 Chloride IV 09/16/20 09:59 250 mls 0900 [facility] Administration Insulin Human Lispro 0 units 09/11/20 20:59 09/13/20 13:07 Humalog 300 Units/3 Ml Vial SC 6 unit .MODERATE SLIDING SC PRN Administration Moderate Correctional Scale Insulin Human Lispro 0 units 09/11/20 20:59 09/12/20 20:31 Humalog 300 Units/3 Ml Vial SC 5 unit .BEDTIME SLIDING SC PRN Administration Bedtime Correctional Scale Metformin HCl 750 mg 09/13/20 08:00 09/13/20 09:13 Metformin 500 Mg Tab PO 750 mg QAM-WM [facility] Administration Pantoprazole Sodium 40 mg 09/12/20 09:00 09/13/20 09:11 Pantoprazole 40 Mg Tab PO 40 mg DAILY [facility] Administration Simvastatin 10 mg 09/12/20 21:00 09/12/20 20:29 Simvastatin 10 Mg Tab PO 10 mg HS [facility] Administration Zinc Sulfate 220 mg 09/12/20 09:00 09/13/20 09:10 Zinc Sulfate 220 Mg Cap PO 220 mg DAILY [facility] Administration - Exam General Appearance: NAD, awake alert Eye: PERRL, anicteric sclera ENT: normocephalic atraumatic, no oropharyngeal lesions ENT - other findings: on nasal cannula Neck: no JVD Heart: RRR, no murmur, no gallops, no rubs Respiratory: CTAB, no wheezes, no rales, no ronchi Gastrointestinal: soft, non-tender, non-distended Extremities: no cyanosis, no clubbing, no edema Skin: normal turgor, no lesions, no rashes Neurological: cranial nerve grossly intact, normal sensation to touch, no weakness Musculoskeletal: normal tone, normal strength, no muscle wasting Psychiatric: normal affect, normal behavior, A&O x 3 Hosp A/P - Plan Chest X ray: subtle but patchy infiltrates left greater than right This is a 59 year old male patient who presented with shortness of breath and generalized weakness, diagnosed with COVID pneumonia Acute hypoxic respiratory failure secondary to COVID pneumonia - chest Xray with bilateral infiltrates. He is currently on 2L of oxygen. Prefers not to go home on oxygen. Will attempt to continue to wean - continue dexamethasone, ceftriaxone and azithromycin and remdesivir Type II diabetes - will increase lantus to 12 units - continue sliding scale Hypertension - BP 100-120, will hold for now Dispo: PT evaluation, continue to wean off oxygen
[2020-09-13] MEDS: cefTRIAXone\\ROCEPHIN 1 GM in Sodium Chloride 0.9% 100 ML IVPB SCH (15:24)
[2020-09-13] MEDS ORDERED: Labetalol HCl 100 MG/20 ML VIAL SLOW IVP PRN (16:46)
[2020-09-13] MEDS ORDERED: Amlodipine 5 MG TAB PO SCH (17:30)
[2020-09-13] MEDS: HumaLOG 300 UNITS/3 ML VIAL SC SCH (20:40)
[2020-09-13] MEDS: Simvastatin 10 MG TAB PO SCH (20:41)
[2020-09-13] MEDS: Azithromycin 500 MG in Sodium Chloride 0.9% 250 ML 250 ML IVPB SCH (20:42)
[2020-09-13] MEDS ORDERED: Insulin Glargine 12 UNITS in Pre-Filled Syringe 1 EACH SC SCH (21:00)
[2020-09-14] MEDS: HumaLOG 300 UNITS/3 ML VIAL SC PRN (06:20)
[2020-09-14 06:35] LABS: Hemoglobin 10.9 g/dL (14.0-18.0); Mean Corpuscular HGB CONC 33.7 g/dL (32.0-36.0); Mean Corpuscular Hemoglobin 32.2 pg (27.0-31.0); Mean Corpuscular Volume 95.4 fL (78.0-98.0); Mean Platelet Volume 7.3 fL (7.4-10.4); Platelet Count 404 thou/uL (130-400); RBC Distribution Width 11.4 % (11.5-14.5); Red Blood Cell (RBC) Count 3.39 mill/uL (4.70-6.10); White Blood Cell (WBC) Count 9.1 thou/uL (4.8-10.8)
[2020-09-14 06:57] LABS: Anion Gap 11 mmol/L (10-20); BUN (Urea Nitrogen) 34 mg/dL (8.4-25.7); Calc. Creatinine Clearance 68 mL/min (70-130); Calcium 8.6 mg/dL (7.8-10.44); Carbon Dioxide 26 mmol/L (22-29); Chloride 105 mmol/L (98-107); Glucose 162 mg/dL (70-105); Potassium 4.5 mmol/L (3.5-5.1); Sodium 137 mmol/L (136-145)
[2020-09-14] MEDS ORDERED: Amlodipine 5 MG TAB PO SCH (09:00)
[2020-09-14] MEDS: metFORMIN 500 MG TAB PO SCH (09:10)
[2020-09-14] MEDS: Ascorbic Acid 500 mg Chewable Tablet PO SCH (09:11)
[2020-09-14] MEDS: Cholecalciferol 1,000 UNITS (25 MCG) TAB PO SCH (09:11)
[2020-09-14] MEDS: Cyanocobalamin (Vitamin B-12) 1,000 MCG TAB PO SCH (09:12)
[2020-09-14] MEDS: Aspirin 81 mg Enteric Coated Tablet PO SCH (09:13)
[2020-09-14] MEDS: HumaLOG 300 UNITS/3 ML VIAL SC SCH (09:14)
[2020-09-14] MEDS: Zinc Sulfate 220 MG CAP PO SCH (09:14)
[2020-09-14] MEDS: Enoxaparin Sodium 40 MG/0.4 ML SYRINGE SC SCH (09:14)
[2020-09-14] MEDS: Dexamethasone 4 mg/ml Vial SLOW IVP SCH (09:16)
[2020-09-14] MEDS: REMDESIVIR (EUA) 100 MG in Sodium Chloride 0.9% 250 ML 230 ML IV SCH (11:29)
--- NOTE | 2020-09-14 14:46 | PDOC.DS.DS ---
Provider - Provider Date of Admission: 09/11/20 17:17 Date of Discharge: 09/14/20 Admitting Provider: Trev Roman MD Primary Care Physician: Jacky Persaud MD Course - Hospital Course Hospital Course: Discharge Diagnoses: 1. Acute hypoxic respiratory failure secondary to Covid pneumonia 2. Acute kidney injury 3. Type II diabetes Brief HPI: This is a 59-year-old male with a past medical history of diabetes, hypertension who presented to an urgent care for fevers, chills, cough. He also reported worsening shortness of breath at home. He was given a Z-Dameon and IM antibiotics and IM steroids. Upon arrival to the ER his O2 saturation was 100.4. His oxygen saturation was 95% on room air. Chest x-ray showed bilateral infiltra razia. The patient was admitted for further work-up. Hospital course: Acute hypoxic respiratory failure secondary to Covid pneumonia: The patient did require up to 3 L of oxygen while he was in the hospital. He was started on remdesivir and completed 4 days of this while in the hospital. He also received 2 days of ceftriaxone and azithromycin and IV steroids. Patient states his cough is almost resolved. Home oxygen evaluation at the time of discharge was normal. Patient will be discharged with cefdinir and azithromycin for 5 more days. She get a repeat chest x-ray in 6 weeks. Hypertension YIFAN: the patient presented with a creatinine of 1.79. Hi outpatient lisinopril was held and this improved to 1.11 on 09/14. The patient will be switched to amlodipine on discharge. Pertinent Studies: Chest X ray: subtle but patchy infiltrates left greater than right Resuscitation Status: 09/11/20 21:02 Resuscitation Status Routine Co-Sign Provider: Resuscitation Status: FULL: Full Resuscitation Discussed with: patient - Labs Lab Results: 09/14/20 06:16 09/14/20 06:16 Abnormal Lab Results - Last 48 hrs 09/14/20 06:16: BUN 34 H 09/14/20 06:16: RBC 3.39 L, Hgb 10.9 L, Hct 32.3 L, MCH 32.2 H, RDW 11.4 L, Plt Count 404 H, MPV 7.3 L - Physical Exam Vitals: Vital Signs (12 hours) Temp Pulse Resp BP Pulse Ox 09/14/20 11:14 98.4 F 84 16 104/65 93 L 09/14/20 09:14 84 09/14/20 08:00 92 L 09/14/20 07:24 97.9 F 84 18 118/72 92 L 09/14/20 04:00 98.1 F 73 18 145/83 H 96 Weight Admit Weight 149 lb 8 oz Weight 149 lb 8 oz Physical Exam: The patient was seen and examined on the day of discharge. General: patient is awake, alert, oriented times three CVS: RRR, no murmurs, rubs, gallops Lungs: CTAB Abdomen: +BS, soft, nontender, nondistended Extremities: no edema Problem - Time spent with Patient (mins): 35 Plan - Discharge Medications Prescriptions: Cefdinir 300 mg PO Q12HR #8 capsule Azithromycin 250 mg PO DAILY #4 tablet Amlodipine [Norvasc] 5 mg PO DAILY #30 tab Home Medications: Medication Instructions Recorded Confirmed Type Aspirin [Ecotrin Low Strength] 1 tablet PO DAILY 09/12/20 09/12/20 History Benzonatate [Tessalon] 1 capsule PO Q8HR PRN 09/12/20 09/12/20 History Cyanocobalamin (Vitamin B-12) 1 tablet PO DAILY 09/12/20 09/12/20 History [Vitamin B-12] Lovastatin 1 tablet PO DAILY 09/12/20 09/12/20 History metFORMIN HCl [Metformin HCl ER] 1 tablet PO DAILY 09/12/20 09/12/20 History Amlodipine [Norvasc] 5 mg PO DAILY #30 tab 09/14/20 Rx Azithromycin 250 mg PO DAILY #4 tablet 09/14/20 Rx Cefdinir 300 mg PO Q12HR #8 capsule 09/14/20 Rx Allergies: No Known Allergies Allergy (Verified 11/15/19 05:11) - Discharge Instructions Activity:: Activity as Tolerated Nourishment:: Diabetic Diet - Follow up Plan Referrals: Jacky Persaud MD [Primary Care Provider] - Disposition: HOME Quality - Care Measures CORE MEASURES:: N/A
[2020-09-14 16:28] VITALS: BP 152/80; TEMP 98.2
== END 2020-09-14 16:40 | disposition home or self-care (01) | DRG 177 ==
LOC: T4-B 17:17
PROVIDERS: ADMIT Internal Medicine; ATTEND Internal Medicine
PROC: 8E0ZXY6 Isolation (ICD-10-PCS; principal; 2020-09-11)
PROC: XW033E5 Introduction of Remdesivir Anti-infective into Peripheral Vein, Percutaneous Approach, New Technology Group 5 (ICD-10-PCS; 2020-09-12)
DX: U07.1 COVID-19 (principal); J12.82 Pneumonia due to coronavirus disease 2019; J96.01 Acute respiratory failure with hypoxia; N17.9 Acute kidney failure, unspecified; E78.5 Hyperlipidemia, unspecified; N18.9 Chronic kidney disease, unspecified; E11.22 Type 2 diabetes mellitus with diabetic chronic kidney disease; I12.9 Hypertensive chronic kidney disease with stage 1 through stage 4 chronic kidney disease, or unspecified chronic kidney disease; Z79.899 Other long term (current) drug therapy; Z79.84 Long term (current) use of oral hypoglycemic drugs; Z90.49 Acquired absence of other specified parts of digestive tract
CPT/HCPCS: 36415; 36416; 80048; 81001; 85025; 85027; J0456; J0696; J1100; J1650; J1815; J3490; J7050

== ENCOUNTER 2023-03-24 10:38 | Emergency (ER) | payer BC ==
[2023-03-24 12:09] LABS: #Eosinphils 0.1 thou/uL (0.0-0.7); #Monocytes 0.6 thou/uL (0.11-0.59); %Basophils 0.3 % (0.0-1.0); %Eosinophils 0.6 % (0.0-10.0); %Lymphocytes 15.3 % (21.0-51.0); %Monocytes 6.4 % (0.0-10.0); %Neutrophils 77.2 % (42.0-75.0); Hemoglobin 12.2 g/dL (14.0-18.0); Mean Corpuscular HGB CONC 33.5 g/dL (32.0-36.0); Mean Corpuscular Hemoglobin 31.2 pg (27.0-31.0); Mean Corpuscular Volume 93.1 fl (78.0-98.0); Mean Platelet Volume 9.5 fL (7.4-10.4); Platelet Count 293 10x3/uL (130-400); RBC Distribution Width 12.1 % (11.5-14.5); Red Blood Cell (RBC) Count 3.91 mill/uL (4.70-6.10); White Blood Cell (WBC) Count 9.1 10x3/uL (4.8-10.8)
[2023-03-24 12:31] LABS: Chloride 103 mmol/L (98-107); Potassium 4.4 mmol/L (3.5-5.1); Sodium 135 mmol/L (136-145)
[2023-03-24] MEDS ORDERED: Vancomycin 1.5 GRAM/300 ML BAG 1.5 GM in Premix Bag 1 BAG IVPB SCH (12:45)
[2023-03-24] MEDS ORDERED: Piperacillin/Tazobactam 4.5 GM VIAL ONE (12:51)
[2023-03-24 13:48] LABS: Calcium 9.3 mg/dL (7.8-10.44); Glucose 259 mg/dL (80-115)
[2023-03-24 13:49] LABS: Globulin 3.6 g/dL (2.4-3.5); Protein, Total 7.6 g/dL (5.8-8.1)
[2023-03-24 13:50] LABS: Anion Gap 11 mmol/L (10-20); Bilirubin, Total 0.4 mg/dL (0.2-1.2); Carbon Dioxide 21 mmol/L (23-31)
[2023-03-24 13:51] LABS: Alkaline Phosphatase 76 U/L (40-110)
[2023-03-24 13:52] LABS: Calc. Creatinine Clearance 0 mL/min (70-130); Estimated GFR 54
[2023-03-24 13:53] LABS: BUN (Urea Nitrogen) 24 mg/dL (8.4-25.7)
[2023-03-24 13:54] LABS: ALT (SGPT) 9 U/L (8-55); AST (SGOT) 10 U/L (5-34)
== END 2023-03-24 16:47 | disposition home or self-care (01) ==
LOC: ERS 10:38
DX: L03.116 Cellulitis of left lower limb (principal); E78.00 Pure hypercholesterolemia, unspecified; I10 Essential (primary) hypertension
CPT/HCPCS: 36415; 80053; 83605; 85025; 85652; 86140; 87040; 87070; 87077; 87186; 87205; 96365; 96366; 96367; J2543; J3370